=== PATIENT | male | born 1940 | race Hispanic/Latino ===

== ENCOUNTER → 2022-10-07 | Outpatient (CLI) | payer MEDICARE ==
[~2022-10-07] MED LIST: ACET-2743 PO; LOSA100T58 PO; MULT-1296 PO; MV,1TABL8 PO
== END | disposition home or self-care (01) ==
LOC: SLP 20:42
PROVIDERS: ATTEND Student in an Organized Health Care Education/Training Program
DX: G47.33 Obstructive sleep apnea (adult) (pediatric) (principal)
CPT/HCPCS: 95810

== ENCOUNTER → 2022-10-14 | Outpatient (CLI) | payer MEDICARE | END | disposition home or self-care (01) | LOC: SLP 20:55 | PROVIDERS: ATTEND Student in an Organized Health Care Education/Training Program | DX: G47.33 Obstructive sleep apnea (adult) (pediatric) (principal) | CPT/HCPCS: 95811 ==

== ENCOUNTER → 2025-04-16 | Outpatient (CLI) | payer MEDICARE ==
[~2025-04-16] MED LIST changes: +IOHEXOL 350 MG/ML 100ML INFUS..BTL IV ONE; -LOSA100T58 PO; +LOSA100T59 PO
--- NOTE | 2025-04-21 14:13 | CARDIOLOGY ---
RAD REPORT: [facility] CT ANGIO RADIOLOGY REPORT: CORONARY CT ANGIOGRAPHY DATE: Apr 21, 2025 QUALITY: Excellent CLINICAL HISTORY AND INDICATION: [ chest pain ] TECHNIQUE: After obtaining a preliminary technology coordinator image, contrast imaging performed on an [employer] [id number] scanner. A dedicated, limited window, coronary imaging protocol was used, with single breath-hold, retrospective ECG gating, and automated arrhythmia rejection. 100 cc of low osmolar contrast agent: Omnipaque 350 was delivered via a 18-gauge IV catheter in the right antecubital fossa, using a power injector and followed by 60 cc of normal saline bolus as a chaser. Collimated images were reformatted at 0.5 mm intervals, and sent to an offline independent workstation for interpretation, using 3D anatomic reconstructions: Curved multiplanar reconstructions, maximum intensity projections, and multiplanar imaging. 5 mg IV metoprolol was administered prior to scanning. 0.8 mg SL nitroglycerin was given. CORONARY ARTERY DESCRIPTIONS: The coronary arteries arise in normal position. Left main coronary artery: Normal caliber vessel that bifurcates into the LAD and LCx. No stenosis. Left anterior descending coronary artery: Normal caliber vessel and gives rise to diagonal and septal branches. There is mixed calcified and noncalcified plaque in the proximal LAD with 80-90% stenosis. There is mixed calcified and n oncalcified plaque in the ostial D1 with 70-80% stenosis. Left circumflex coronary artery: Normal caliber, nondominant and gives rise to two OM branches. There is mixed calcified and noncalcified plaque in the proximal LCx with 50-60% stenosis. Right coronary artery: Large, dominant vessel giving rise to the PL and PDA branches. There is mixed calcified and noncalcified plaque in the proximal RCA with 70-80% stenosis. There is mixed calcified and noncalcified plaque in the mid and distal RCA with 50-60% stenosis. CAD-RADs: 4A, severe stenosis. Thoracic Aorta: Normal diameter. Layla Fontenot MD Cardiovascular Disease [facility] LAYLA FONTENOT MD Apr 21, 2025 14:13
== END | disposition home or self-care (01) ==
LOC: RAH 07:30
PROVIDERS: ATTEND Student in an Organized Health Care Education/Training Program
DX: I25.10 Atherosclerotic heart disease of native coronary artery without angina pectoris (principal); I50.20 Unspecified systolic (congestive) heart failure
CPT/HCPCS: 75574; J3490; Q9967